=== PATIENT | male | born 1935 | race Caucasian/White ===

== ENCOUNTER 2017-02-16 12:55 | Emergency (ER) | payer OTHER ==
[~2017-02-16] VITALS: Ht 167.6 cm; Wt 85.0 kg
[2017-02-16] MEDS ORDERED: IOHEXOL 350 MG/ML 10 ML VIAL (for RAD DIAG) IVCONTRAST ONE (12:56)
[2017-02-16 13:07] VITALS: BP 132/68; PULSE 71; RESP 22; TEMP 97.9; O2SAT 100
[2017-02-16] MEDS ORDERED: SODIUM CHLORIDE 0.9% FLUSH 10 ML FLUSH IVF PRN (13:15)
--- NOTE | 2017-02-16 13:15 | PD ---
HPI Chief Complaint: Respiratory Symptoms Time Seen by Provider: 13:12 Travel History International Travel<30 days: No Contact w/Intl Traveler<30days: No Traveled to known affect area: No History of Present Illness HPI 81-year-old male presents to the emergency department. Patient [facility] for [facility] of his recurrent chest pain and findings of abnormalities of Q waves in leads 3 and aVF on his EKG. Patient had a STEMI in [place] 2 weeks ago and a stent was placed. States he felt great but then drove from [place] which took about 12 hours. States that when he returned to [place] he started developing social dyspnea and had an episode of chest pain last week resolved with nitroglycerin. 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 Patient currently denies fever, chills, chest pain, shortness of breath, cough, abnormal back pain, abdominal pain, numbness, tingling leg pain. PFSH Past Medical History Cardiovascular Problems: Yes Social History Tobacco Use: Yes Allergies-Medications (Allergen,Severity, Reaction): Coded Allergies: No Known Allergies (Unverified , 02/16/17) Reported Meds & Prescriptions Reported Meds & Active Scripts Active Reported Nitrostat SL (Nitroglycerin) 0.4 Mg Subl 0.4 Mg SL DIRECTED PRN 1 tablet under the tongue as needed for chest pain. Repeat every 5 minutes for a total of 3 DOSES or call 911 if NO relief. Isosorbide Mononitrate ER (Isosorbide Mononitrate) 30 Mg Tony 30 Mg PO DAILY Gabapentin 600 Mg Tab 600 Mg PO QID Furosemide 40 Mg Tab 40 Mg PO DAILY Clopidogrel (Clopidogrel Bisulfate) 75 Mg Tab 75 Mg PO DAILY Cetirizine (Cetirizine HCl) 10 Mg Tab 10 Mg PO DAILY Carvedilol 6.25 Mg Tab 6.25 Mg PO BID Baclofen 10 Mg Tab 10 Mg PO TID Atorvastatin (Atorvastatin Calcium) 80 Mg Tab 80 Mg PO HS Aspirin 81 Mg Chew 81 Mg CHEW DAILY Review of Systems Except as stated in HPI: all other systems reviewed are Neg Physical Exam Narrative GENERAL: Well developed well nourished SKIN: Focused skin assessment warm/dry. No erythema or edema of the upper or lower external extremities HEAD: Atraumatic. Normocephalic. EYES: Pupils equal and round. No scleral icterus. No injection or drainage. ENT: No nasal bleeding or discharge. Mucous membranes pink and moist. NECK: Trachea midline. No JVD. CARDIOVASCULAR: Regular rate and rhythm. No murmur appreciated. RESPIRATORY: No accessory muscle use. Clear to auscultation. Breath sounds equal bilaterally. GASTROINTESTINAL: Abdomen soft, non-tender, nondistended. Hepatic and splenic margins not palpable. MUSCULOSKELETAL: No obvious deformities. No clubbing. No cyanosis. No edema. Homans sign negative bilateral legs. NEUROLOGICAL: Awake and alert. No obvious cranial nerve deficits. Motor grossly within normal limits. Normal speech. PSYCHIATRIC: Appropriate mood and affect; insight and judgment normal. Data Data Last Documented VS Vital Signs Date Time Temp Pulse Resp B/P (MAP) Pulse Ox O2 Delivery O2 Flow Rate FiO2 02/16/17 18:18 02/16/17 15:54 61 18 98 Nasal Cannula 2.00 02/16/17 13:07 97.9 Orders Orders Complete Blood Count With Diff (02/16/17 13:15) Basic Metabolic Panel (Bmp) (02/16/17 13:15) B-Type Natriuretic Peptide (02/16/17 13:15) Act Partial Throm Time (Ptt) (02/16/17 13:15) Prothrombin Time / Inr (Pt) (02/16/17 13:15) Ckmb (Isoenzyme) Profile (02/16/17 13:15) Troponin I (02/16/17 13:15) Urinalysis - C+S If Indicated (02/16/17 13:15) Iv Access Insert/Monitor (02/16/17 13:15) Ecg Monitoring (02/16/17 13:15) Oximetry (02/16/17 13:15) Oxygen Administration (02/16/17 13:15) Sodium Chloride 0.9% Flush (Ns Flush) (02/16/17 13:15) D-Dimer (02/16/17 13:35) Ct Pulmonary Angiogram (02/16/17 ) CKMB (02/16/17 13:20) CKMB% (02/16/17 13:20) Iohexol 350 Inj (Omnipaque 350 Inj) (02/16/17 12:56) Ed Discharge Order (02/16/17 16:07) Urine Culture (02/16/17 15:55) Electrocardiogram (02/16/17 13:07) Labs Laboratory Tests Test 02/16/17 13:20 02/16/17 15:55 White Blood Count 7.7 TH/MM3 Red Blood Count 4.78 MIL/MM3 Hemoglobin 15.1 GM/DL Hematocrit 45.3 % Mean Corpuscular Volume 94.8 FL Mean Corpuscular Hemoglobin 31.7 PG Mean Corpuscular Hemoglobin Concent 33.4 % Red Cell Distribution Width 13.4 % Platelet Count 226 TH/MM3 Mean Platelet Volume 8.6 FL Neutrophils (%) (Auto) 62.3 % Lymphocytes (%) (Auto) 18.6 % Monocytes (%) (Auto) 10.0 % Eosinophils (%) (Auto) 8.2 % Basophils (%) (Auto) 0.9 % Neutrophils # (Auto) 4.8 TH/MM3 Lymphocytes # (Auto) 1.4 TH/MM3 Monocytes # (Auto) 0.8 TH/MM3 Eosinophils # (Auto) 0.6 TH/MM3 Basophils # (Auto) 0.1 TH/MM3 CBC Comment DIFF FINAL Differential Comment Prothrombin Time 11.6 SEC Prothromb Time International Ratio 1.0 RATIO Activated Partial Thromboplast Time 27.3 SEC D-Dimer Quantitative (PE/DVT) 0.55 MG/L FEU Blood Urea Nitrogen 25 MG/DL Creatinine 0.92 MG/DL Random Glucose 81 MG/DL Calcium Level 9.3 MG/DL Sodium Level 138 MEQ/L Potassium Level 4.4 MEQ/L Chloride Level 103 MEQ/L Carbon Dioxide Level 29.2 MEQ/L Anion Gap 6 MEQ/L Estimat Glomerular Filtration Rate 79 ML/MIN Total Creatine Kinase 155 U/L Creatine Kinase MB 1.9 NG/ML Troponin I 0.02 NG/ML B-Type Natriuretic Peptide 53 PG/ML Urine Color YELLOW Urine Turbidity CLOUDY Urine pH 8.0 Urine Specific [place] 1.019 Urine Protein NEG mg/dL Urine Glucose (UA) NEG mg/dL Urine Ketones NEG mg/dL Urine Occult Blood NEG Urine Nitrite NEG Urine Bilirubin NEG Urine Urobilinogen LESS THAN 2.0 MG/DL Urine Leukocyte Esterase NEG Urine RBC LESS THAN 1 /hpf Urine WBC 11 /hpf Urine Squamous Epithelial Cells <1 /hpf Urine Amorphous Sediment RARE Microscopic Urinalysis Comment CULTURE INDICATED MDM Medical Decision Making Medical Screen Exam Complete: Yes Emergency Medical Condition: Yes Differential Diagnosis STEMI versus unstable angina versus an STEMI versus PE Narrative Course 81-year-old male presents to the emergency department via [facility] at the recommendation of [facility] for evaluation of Q waves in leads 3 and aVF. Upon arrival patient states that he is asymptomatic no chest pain or shortness of breath, cough. No unusual back pain, belly pain, numbness or tingling. Patient has been to [facility] the last 2 weeks and apparently completed a work up for STEMI. When patient does have shortness of breath and chest pain he states that his with exertion only goes away when he rests. He had an episode of chest pain last week that was relieved with 2 nitroglycerin. He stated that there was no recent extensive travel, no history of cancer, denies previous DVT or PE, had stent placement 2 weeks ago. I spoke to his primary care physician Dr. Diamond in [place] and he is aware of patient's recent admits and STEMI. Dr. Oneill stated questionable compliance. Previous imaging stated cardiomegaly and pulmonary nodules consistent with asbestos exposure. Currently patient was referred to pulmonology for evaluation of this finding. Vital signs stable PERC 3. H/o 'clot in heart' in 1996 and recent stent placement 2 weeks ago. Labs BUN/Cr 25/0.92, Ddimer positive CT Angio demonstrates calcified pleural plaques and interstitial fibrotic change suggesting asbestosis. No pulmonary embolism identified. Patient remained asymptomatic during urgency department visit. Advised to follow up with pulmonary and edging catcher for evaluation of his symptoms. Diagnosis Primary Impression: Shortness of breath on exertion Referrals: Restaurant Attendant Primary Care Physician Outside Machinist Helper Disposition: 01 DISCHARGE HOME Condition: Stable Criselda Wooten Feb 16, 2017 13:15
[2017-02-16 13:43] VITALS: RESP 18; O2SAT 100
[2017-02-16] MEDS ORDERED: ASPI81CH CHEW (13:53)
[2017-02-16] MEDS ORDERED: NITR0.4S SL (13:53)
[2017-02-16] MEDS ORDERED: CARV6.252 PO (13:53)
[2017-02-16] MEDS ORDERED: CETI10 PO (13:53)
[2017-02-16] MEDS ORDERED: CLOP75TA PO (13:53)
[2017-02-16] MEDS ORDERED: ATOR1TAB18 PO (13:53)
[2017-02-16] MEDS ORDERED: GABA600T PO (13:53)
[2017-02-16] MEDS ORDERED: ISOS30TA3 PO (13:53)
[2017-02-16] MEDS ORDERED: FURO40TA PO (13:53)
[2017-02-16] MEDS ORDERED: BACL10TA PO (13:53)
[2017-02-16 14:11] LABS: AUTOMATED NEUTROPHIL # 4.8 TH/MM3 (1.8-7.7); BASOPHIL # 0.1 TH/MM3 (0-0.2); BASOPHIL % 0.9 % (0.0-2.0); EOSINOPHIL # 0.6 TH/MM3 (0-0.4); EOSINOPHIL % 8.2 % (0.0-4.0); HEMATOCRIT 45.3 % (39.0-51.0); HEMO FLAGS DIFF FINAL; LYMPH % 18.6 % (9.0-44.0); LYMPHOCYTE # 1.4 TH/MM3 (1.0-4.8); MEAN CELL VOLUME 94.8 FL (80.0-100.0); MEAN CORPUSCULAR HEMOGLOBIN 31.7 PG (27.0-34.0); MEAN CORPUSCULAR HGB CONC 33.4 % (32.0-36.0); NEUT % 62.3 % (16.0-70.0); PLATELET COUNT 226 TH/MM3 (150-450); RED BLOOD COUNT 4.78 MIL/MM3 (4.50-5.90); RED CELL DISTRIBUTION WIDTH 13.4 % (11.6-17.2); WHITE BLOOD COUNT 7.7 TH/MM3 (4.0-11.0)
[2017-02-16 14:23] LABS: APTT (PATIENT) 27.3 SEC (24.3-30.1); PROTHROMBIN TIME - PATIENT 11.6 SEC (9.8-11.6)
[2017-02-16 14:28] LABS: ANION GAP 6 MEQ/L (5-15); BICARBONATE 29.2 MEQ/L (21.0-32.0); BLOOD UREA NITROGEN 25 MG/DL (7-18); CHLORIDE 103 MEQ/L (98-107); GLOMERULAR FILTRATION RATE 79 ML/MIN (>89); POTASSIUM 4.4 MEQ/L (3.5-5.1); SODIUM (NA) 138 MEQ/L (136-145)
[2017-02-16 14:33] LABS: CREATINE KINASE 155 U/L (39-308)
[2017-02-16 14:45] LABS: CKMB 1.9 NG/ML (0.5-3.6)
--- NOTE | 2017-02-16 15:37 | RADRPT ---
EXAM DATE/TIME: 02/16/2017 15:10 [facility] COMPARISON: No previous studies available for comparison. INDICATIONS : Short of breath with general weakness. IV CONTRAST: 70 cc Omnipaque 350 (iohexol) IV RADIATION DOSE: 20.13 CTDIvol (mGy) MEDICAL HISTORY : Myocardial infarction. Hypertension. Cardiovascular disease SURGICAL HISTORY : Coronary artery stent. ENCOUNTER: Initial ACUITY: 1 day PAIN SCALE: 3/10 LOCATION: Bilateral chest TECHNIQUE: Volumetric scanning of the chest was performed using a pulmonary embolism protocol MIP images were re constructed. Using automated exposure control and adjustment of the mA and/or kV according to patien t size, radiation dose was kept as low as reasonably achievable to obtain optimal diagnostic quality images. DICOM format image data is available electronically for review and comparison. Follow-up recommendations for detected pulmonary nodules are based at a minimum on nodule size and pa tient risk factors according to Fleischner Society Guidelines. FINDINGS: The exam is of adequate diagnostic quality. No pulmonary embolus is identified. The heart is enlarged. There is calcification within the myocardium of the left ventricle suggesting previous infarct. There is no significant hilar or mediastinal adenopathy. There is atherosclerotic p laque in the coronary arteries. There is diffuse nodular pleural thickening. Most of these areas demonstrate some degree of calcifica tion. There is no pleural effusion. There are interstitial fibrotic changes within the pulmonary parenchyma. The examination would sugges t asbestosis. The visualized bony structures demonstrate degenerative changes but are otherwise intact. CONCLUSION: 1. Multiple partially calcified pleural plaques and interstitial fibrotic change suggesting asbestosi s. Followup examination in 6 months to document stability of the pleural plaques would be warranted. 2. No pulmonary edema is identified. 3. Cardiomegaly with calcification in the left ventricular wall suggesting previous IN. Adal Gold MD on February 16, 2017 at 15:33 Board Certified Radiologist. This report was verified electronically.
[2017-02-16 15:54] VITALS: BP 140/78; PULSE 61; RESP 18; O2SAT 20; O2SAT 98
[2017-02-16 16:24] LABS: BLOOD, URINE NEG (NEG); COMMENT (UR) CULTURE INDICATED; CULTURE IF INDICATED CULTURE INDICATED; GLUCOSE,URINE NEG (NEG); KETONE, URINE NEG (NEG); NITRITE,URINE NEG (NEG); SQUAMOUS EPITHELIAL CELL URINE <1 /hpf (0-5); URINE COLOR YELLOW (YELLW/STRAW)
--- NOTE | 2017-02-16 18:50 | EKG ---
Date Performed: 02/16/2017 Time Performed: 13:07:46 PTAGE: 81 years EKG: Sinus rhythm WITH FIRST DEGREE AV BLOCK MARKED LEFT AXIS DEVIATION POSSIBLE ANTERIOR MYOCARDIAL INFARCTION MODERA TE T-WAVE ABNORMALITY, CONSIDER LATERAL ISCHEMIA ABNORMAL ECG NO PREVIOUS TRACING DOCTOR: Ignacio Mack Interpretating Date/Time 02/16/2017 18:48:50
== END 2017-02-16 18:18 | disposition home or self-care (01) ==
LOC: NEPC 12:55
DX: R06.02 Shortness of breath (principal); R07.9 Chest pain, unspecified; R94.31 Abnormal electrocardiogram [ECG] [EKG]; R82.99 Other abnormal findings in urine; Z72.0 Tobacco use; Z86.79 Personal history of other diseases of the circulatory system
CPT/HCPCS: 71275; 80048; 81001; 82550; 82552; 83880; 84484; 85025; 85379; 85610; 85730; 87086; 93005; 99285; Q9967

== ENCOUNTER 2017-04-26 10:18 | Inpatient (IN) | payer OTHER ==
[~2017-04-26] VITALS: Ht 167.6 cm; Wt 87.4 kg
[2017-04-26] VITALS (7 sets, daily range): BP systolic 89–139; BP diastolic 55–83; PULSE 57–75; RESP 16–20; TEMP 97.1–97.9; O2SAT 78–97
[~2017-04-26 10:18] MED LIST: ASPI-516 CHEW; ATOR80TA45 PO; BACL10TA PO; CARV6.252 PO; CETI10 PO; CLOP75TA PO; FURO40TA PO; GABA600T PO; ISOS30TA3 PO; NITR0.4S SL
[2017-04-26] MEDS ORDERED: MELO7.5T27 PO (11:19)
[2017-04-26 11:33] LABS: AUTOMATED NEUTROPHIL # 4.9 TH/MM3 (1.8-7.7); BASOPHIL # 0.1 TH/MM3 (0-0.2); BASOPHIL % 0.7 % (0.0-2.0); EOSINOPHIL # 0.7 TH/MM3 (0-0.4); EOSINOPHIL % 7.8 % (0.0-4.0); HEMATOCRIT 43.6 % (39.0-51.0); HEMO FLAGS DIFF FINAL; LYMPH % 20.2 % (9.0-44.0); LYMPHOCYTE # 1.8 TH/MM3 (1.0-4.8); MEAN CELL VOLUME 96.4 FL (80.0-100.0); MEAN CORPUSCULAR HEMOGLOBIN 32.3 PG (27.0-34.0); MEAN CORPUSCULAR HGB CONC 33.5 % (32.0-36.0); MONO % 15.7 % (0.0-8.0); NEUT % 55.6 % (16.0-70.0); PLATELET COUNT 197 TH/MM3 (150-450); RED BLOOD COUNT 4.53 MIL/MM3 (4.50-5.90); RED CELL DISTRIBUTION WIDTH 14.9 % (11.6-17.2); WHITE BLOOD COUNT 8.7 TH/MM3 (4.0-11.0)
--- NOTE | 2017-04-26 11:57 | RADRPT ---
EXAM DATE/TIME: 04/26/2017 11:12 [facility] COMPARISON: CT PULMONARY ANGIOGRAM, February 16, 2017, 15:10. INDICATIONS : [facility] by [facility] MEDICAL HISTORY : Myocardial infarction. Hypertension. Cardiovascular disease SURGICAL HISTORY : Coronary artery stent. ENCOUNTER: Initial ACUITY: 1 day PAIN SCORE: 0/10 LOCATION: Bilateral chest FINDINGS: 2 portable frontal views of the chest show partially calcified pleural plaques bilaterally. These are better seen on the recent CT scan. The lungs are clear without infiltrate or effusion. Eventration o f the right hemidiaphragm noted. Heart is normal in size. 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 Anchoring devices overlie the left lateral head. CONCLUSION: No acute cardiopulmonary disease. Lio Kern Jr., MD on April 26, 2017 at 11:49 Board Certified Radiologist. This report was verified electronically.
[2017-04-26 11:59] LABS: ALT (GPT) 31 U/L (12-78); ANION GAP 4 MEQ/L (5-15); AST (GOT) 26 U/L (15-37); BICARBONATE 28.7 MEQ/L (21.0-32.0); BLOOD UREA NITROGEN 27 MG/DL (7-18); CHLORIDE 105 MEQ/L (98-107); GLOMERULAR FILTRATION RATE 49 ML/MIN (>89); POTASSIUM 4.8 MEQ/L (3.5-5.1); SODIUM (NA) 138 MEQ/L (136-145)
[2017-04-26] MEDS ORDERED: SODIUM CHLORID 0.9% 500 ML INJ 500 ML IV ONE (12:00)
--- NOTE | 2017-04-26 12:02 | PD ---
HPI Chief Complaint: Cardiac Complaint Time Seen by Provider: 10:55 Travel History International Travel<30 days: No Contact w/Intl Traveler<30days: No Traveled to known affect area: No History of Present Illness HPI Surmises a well 81-year-old man who presents to the emergency Department sent over from the [place] for hypotension and dyspnea on exertion. Patient reports that he's been dyspneic on exertion ever since he had an ND back in January of this year. He is otherwise been doing well and went for routine appointment with the [place] pain management. Wall there he had a hypotensive episode and was down in the 80 systolic. Says he felt lightheaded. He had been feeling well before this appointment. He does state that he put on about 5 or 10 pounds. He previously been told that if he became more than 2 pounds a double up on his Lasix so he doubled up on his Lasix for the past several days. Patient states he feels better now and would like to go home. No other complaints. History Past Medical History Narrative Medical CAD Chronic pain History of PE Hypothyroidism Hyperlipidemia GERD Hypertension Tetanus Vaccination: > 5 Years Influenza Vaccination: No Social History Alcohol Use: Yes (OCCAS) Tobacco Use: No Allergies-Medications (Allergen,Severity, Reaction): Coded Allergies: No Known Allergies (Unverified , 02/16/17) Reported Meds & Prescriptions Reported Meds & Active Scripts Active Reported Meloxicam 7.5 Mg Tab 7.5 Mg PO DAILY Nitrostat SL (Nitroglycerin) 0.4 Mg Subl 0.4 Mg SL DIRECTED PRN 1 tablet under the tongue as needed for chest pain. Repeat every 5 minutes for a total of 3 DOSES or call 911 if NO relief. Isosorbide Mononitrate ER (Isosorbide Mononitrate) 30 Mg Tony 30 Mg PO DAILY Gabapentin 600 Mg Tab 400 Mg PO QID Furosemide 40 Mg Tab 20 Mg PO DAILY Clopidogrel (Clopidogrel Bisulfate) 75 Mg Tab 75 Mg PO DAILY Cetirizine (Cetirizine HCl) 10 Mg Tab 10 Mg PO DAILY Carvedilol 6.25 Mg Tab 6.25 Mg PO BID Baclofen 10 Mg Tab 10 Mg PO TID Atorvastatin (Atorvastatin Calcium) 80 Mg Tab 80 Mg PO HS Aspirin 81 Mg Chew 81 Mg CHEW DAILY Review of Systems Except as stated in HPI: all other systems reviewed are Neg Physical Exam Narrative GENERAL: Well-appearing 81-year-old man, no acute distress. SKIN: Focused skin assessment warm/dry. HEAD: Atraumatic. Normocephalic. EYES: Pupils equal and round. No scleral icterus. No injection or drainage. ENT: No nasal bleeding or discharge. Mucous membranes pink and moist. NECK: Trachea midline. No JVD. CARDIOVASCULAR: Regular rate and rhythm. No murmur appreciated. RESPIRATORY: No accessory muscle use. Clear to auscultation. Breath sounds equal bilaterally. GASTROINTESTINAL: Abdomen soft, non-tender, nondistended. Hepatic and splenic margins not palpable. MUSCULOSKELETAL: No obvious deformities. No clubbing. No cyanosis. No edema. NEUROLOGICAL: Awake and alert. No obvious cranial nerve deficits. Motor grossly within normal limits. Normal speech. PSYCHIATRIC: Appropriate mood and affect; insight and judgment normal. Data Data Last Documented VS Vital Signs Date Time Temp Pulse Resp B/P (MAP) Pulse Ox O2 Delivery O2 Flow Rate FiO2 04/26/17 14:36 97.8 62 18 132/78 (96) 96 Room Air Orders Orders Complete Blood Count With Diff (04/26/17 11:04) Comprehensive Metabolic Panel (04/26/17 11:04) B-Type Natriuretic Peptide (04/26/17 11:04) Troponin I (04/26/17 11:04) Iv Access Insert/Monitor (04/26/17 11:04) Chest, Single Ap (04/26/17 ) Electrocardiogram (04/26/17 ) Sodium Chlorid 0.9% 500 Ml Inj (Ns 500 M (04/26/17 12:00) D-Dimer (04/26/17 14:14) Admit To Inpatient (04/26/17 ) Vital Signs (Adult) Q4H (04/26/17 14:39) Activity Oob With Assistance (04/26/17 14:39) Loader Machine / Telemetry .CONTINUOUS (04/26/17 14:39) Intake + Output CINDY.QSHIFT (04/26/17 14:39) Diet Heart Healthy (04/26/17 Dinner) Sodium Chloride 0.9% Flush (Ns Flush) (04/26/17 14:45) Sodium Chloride 0.9% Flush (Ns Flush) (04/26/17 21:00) Basic Metabolic Panel (Bmp) (04/27/17 06:00) Complete Blood Count With Diff (04/27/17 06:00) Creatine Kinase (Cpk) (04/26/17 17:00) Creatine Kinase (Cpk) (04/26/17 23:00) Troponin I (04/26/17 17:00) Troponin I (04/26/17 23:00) Electrocardiogram (04/26/17 17:00) Electrocardiogram (04/26/17 23:00) Pt Request For Service (04/26/17 14:39) Case Management Consult (04/26/17 14:39) Naloxone Inj (Narcan Inj) (04/26/17 14:45) Inpatient Certification (04/26/17 ) Heparin Inj (Heparin Inj) (04/26/17 14:45) Heparin Inj (Heparin Inj) (04/26/17 20:45) Heparin Inj (Heparin Inj) (04/26/17 20:45) Heparin-D5w 25,000 U/250 Ml (Heparin-D5w (04/26/17 14:45) Cbc No Diff, Includes Plts (04/29/17 06:00) Act Partial Throm Time (Ptt) (04/26/17 21:41) Occult Blood (Hemoccult) Stool (04/26/17 14:41) Prothrombin Time / Inr (Pt) (04/26/17 14:41) Act Partial Throm Time (Ptt) (04/26/17 14:41) Orthostatic Blood Pressure Q4H (04/26/17 14:42) Admit Order (Ed Use Only) (04/26/17 ) Labs Laboratory Tests Test 04/26/17 11:05 04/26/17 14:30 White Blood Count 8.7 TH/MM3 Red Blood Count 4.53 MIL/MM3 Hemoglobin 14.6 GM/DL Hematocrit 43.6 % Mean Corpuscular Volume 96.4 FL Mean Corpuscular Hemoglobin 32.3 PG Mean Corpuscular Hemoglobin Concent 33.5 % Red Cell Distribution Width 14.9 % Platelet Count 197 TH/MM3 Mean Platelet Volume 8.1 FL Neutrophils (%) (Auto) 55.6 % Lymphocytes (%) (Auto) 20.2 % Monocytes (%) (Auto) 15.7 % Eosinophils (%) (Auto) 7.8 % Basophils (%) (Auto) 0.7 % Neutrophils # (Auto) 4.9 TH/MM3 Lymphocytes # (Auto) 1.8 TH/MM3 Monocytes # (Auto) 1.4 TH/MM3 Eosinophils # (Auto) 0.7 TH/MM3 Basophils # (Auto) 0.1 TH/MM3 CBC Comment DIFF FINAL Differential Comment Blood Urea Nitrogen 27 MG/DL Creatinine 1.40 MG/DL Random Glucose 82 MG/DL Total Protein 6.7 GM/DL Albumin 3.5 GM/DL Calcium Level 8.0 MG/DL Alkaline Phosphatase 91 U/L Aspartate Amino Transf (AST/SGOT) 26 U/L Alanine Aminotransferase (ALT/SGPT) 31 U/L Total Bilirubin 0.7 MG/DL Sodium Level 138 MEQ/L Potassium Level 4.8 MEQ/L Chloride Level 105 MEQ/L Carbon Dioxide Level 28.7 MEQ/L Anion Gap 4 MEQ/L Estimat Glomerular Filtration Rate 49 ML/MIN Troponin I 0.22 NG/ML B-Type Natriuretic Peptide 178 PG/ML [facility] Medical Decision Making Medical Screen Exam Complete: Yes Emergency Medical Condition: Yes Interpretation(s) My review of EKG: Sinus bradycardia first degree AV block, nonspecific lateral T wave inversions high lateral leads. Small inferior Q waves. No definite evidence of acute ischemia. Lateral T wave inversions are unchanged from previous EKG from February 16, 2017. LABS: CBC is unremarkable. CMP CMP is remarkable for mildly elevated BUN and creatinine. Troponin 0.22 BNP 178 Differential Diagnosis Hypotension episode, adverse drug effect, dehydration, PE, other Narrative Course Medical decision making 81-year-old man presents emergency department complaining of nothing at this point. He states that he had some lightheadedness associated with hypertension ball at the [place] for routine appointment. He is been doubling up on his Lasix. I think is a likely culprit. He's had a PE in the past. Is a little bit unclear about his medications. He is on Plavix. There is no other evidence of PE. We'll check labs, x-ray, EKG. Patient like to be discharged home. He is agreeable to stay for some initial testing. FINAL: Patient with elevated troponin, unclear etiology. History of ND. No history of PE. This was actually an ND following a back operation. We'll add d -dimer given the hypotension, dyspnea on exertion, and elevated troponin of unclear etiology. Spoke with Dr. Kim, will admit patient for further evaluation. Diagnosis Primary Impression: Shortness of breath Additional Impression: Elevated troponin Admitting Information Admitting Physician Requests: Admit Saleem Teresa MD Apr 26, 2017 12:02
[2017-04-26 12:03] LABS: ALKALINE PHOSPHATASE 91 U/L (45-117); TOTAL BILIRUBIN ADULT 0.7 MG/DL (0.2-1.0)
[2017-04-26] MEDS ORDERED: SODIUM CHLORIDE 0.9% FLUSH 10 ML FLUSH IV FLUSH PRN (14:45)
[2017-04-26] MEDS ORDERED: NALOXONE HCL 0.4 MG/ML AMP IV PUSH PRN (14:45)
[2017-04-26 15:51] LABS: APTT (PATIENT) 25.8 SEC (24.3-30.1); INTERNATIONAL NORMALIZED RATIO 1.1 RATIO; PROTHROMBIN TIME - PATIENT 11.1 SEC (9.8-11.6)
[2017-04-26] MEDS ORDERED: HEPARIN-D5W 25,000 U/250 ML 250 ML IV PRN (17:00)
[2017-04-26] MEDS ORDERED: HEPARIN SODIUM - IV 10,000 UNITS/10 ML VIAL IV PUSH ONE (17:00)
--- NOTE | 2017-04-26 18:49 | HHI.HP ---
HPI Service [facility] Primary Care Physician [facility] Admission Diagnosis shortness of breath, elevated troponin Diagnoses: Travel History International Travel<30 Days: No Contact w/Intl Traveler <30 Da: No Traveled to Known Affected Are: No History of Present Illness went to [facility] clinic for pain meds but was not feelign good so told nurse who took him to pcp there and checked him immediately BP was found to be low and pcp told him to come to ER but they let him drive here to come to ER have been sob for past 6 months but worsening since monday and Monday worse with lying down pt increased his lasix dose twice - because he gained water weight 10lbs over 2 weeks- lasix was thus increased 2 weeks ago did not measure BP at home because did not have machine - lost it in [place] have light headedness have some chest pains on and off- but did not think it was from his heart- stated NTG did not help pain is across chest did not radiate thought it was indegestion no other symptoms Past Family Social History Past Medical History htn- meds only stared about 1 yr ago cad- s/p NV in jan 2017 in [facility] CHF - echo showed EF was 40-45% Past Surgical History coronary angiogram and stenting lower back surgery neck surgery hernia operation 2 left shoulder 1 right shoulder carpal tunnel cataract sx Allergies: Coded Allergies: No Known Allergies (Unverified Allergy, Unknown, 04/26/17) Family History none that he knows of Social History used to smoke, from 14 yo to 30yo denies etoh no drugs - but did have prescribed morphine and vicodin previously lives with , still driving Physical Exam Vital Signs Vital Signs Date Time Temp Pulse Resp B/P (MAP) Pulse Ox O2 Delivery O2 Flow Rate FiO2 04/26/17 16:40 97.8 66 18 124/83 (97) 97 04/26/17 14:36 97.8 62 18 132/78 (96) 96 Room Air 04/26/17 12:50 97.9 57 17 116/64 (81) 97 Room Air 04/26/17 11:57 97.8 58 18 89/55 (66) 96 Room Air 04/26/17 10:30 56 04/26/17 10:19 97.7 59 16 110/62 (78) 96 Physical Exam GENERAL: This is a well-nourished, well-developed patient, in no apparent distress. SKIN: No rashes, ecchymoses or lesions. Cool and dry. HEAD: Atraumatic. Normocephalic. No temporal or scalp tenderness. EYES: Pupils equal round and reactive. Extraocular motions intact. No scleral icterus. No injection or drainage. ENT: Nose without bleeding, purulent drainage or septal hematoma. Throat without erythema, tonsillar hypertrophy or exudate. Uvula midline. Airway patent. NECK: Trachea midline. No JVD or lymphadenopathy. Supple, nontender, no meningeal signs. CARDIOVASCULAR: Regular rate and rhythm without murmurs, gallops, or rubs. RESPIRATORY: Clear to auscultation. Breath sounds equal bilaterally. No wheezes , rales, or rhonchi. GASTROINTESTINAL: Abdomen soft, non-tender, nondistended. No hepato-splenomegaly , or palpable masses. No guarding. MUSCULOSKELETAL: Extremities without clubbing, cyanosis, or edema. No joint tenderness, effusion, or edema noted. No calf tenderness. Negative Homans sign bilaterally. NEUROLOGICAL: Awake and alert. Cranial nerves II through XII intact. Motor and sensory grossly within normal limits. Five out of 5 muscle strength in all muscle groups. Normal speech. Laboratory Laboratory Tests Test 04/26/17 11:05 04/26/17 14:30 White Blood Count 8.7 Red Blood Count 4.53 Hemoglobin 14.6 Hematocrit 43.6 Mean Corpuscular Volume 96.4 Mean Corpuscular Hemoglobin 32.3 Mean Corpuscular Hemoglobin Concent 33.5 Red Cell Distribution Width 14.9 Platelet Count 197 Mean Platelet Volume 8.1 Neutrophils (%) (Auto) 55.6 Lymphocytes (%) (Auto) 20.2 Monocytes (%) (Auto) 15.7 Eosinophils (%) (Auto) 7.8 Basophils (%) (Auto) 0.7 Neutrophils # (Auto) 4.9 Lymphocytes # (Auto) 1.8 Monocytes # (Auto) 1.4 Eosinophils # (Auto) 0.7 Basophils # (Auto) 0.1 CBC Comment DIFF FINAL Differential Comment Blood Urea Nitrogen 27 Creatinine 1.40 Random Glucose 82 Total Protein 6.7 Albumin 3.5 Calcium Level 8.0 Alkaline Phosphatase 91 Aspartate Amino Transf (AST/SGOT) 26 Alanine Aminotransferase (ALT/SGPT) 31 Total Bilirubin 0.7 Sodium Level 138 Potassium Level 4.8 Chloride Level 105 Carbon Dioxide Level 28.7 Anion Gap 4 Estimat Glomerular Filtration Rate 49 Troponin I 0.22 B-Type Natriuretic Peptide 178 Prothrombin Time 11.1 Prothromb Time International Ratio 1.1 Activated Partial Thromboplast Time 25.8 D-Dimer Quantitative (PE/DVT) 0.39 Result Diagram: 04/26/17 11004/26/17 110 Caprini VTE Risk Assessment Caprini Risk Assessment Model Point Value = 1 Point Value = 2 Point Value = 3 Point Value = 5 Age 41-60 Minor surgery BMI > 25 kg/m2 Swollen legs Varicose veins or History of unexplained or recurrent spontaneous Oral contraceptives or hormone replacement Sepsis (< 1 month) Serious lung disease, including pneumonia (< 1 month) Abnormal pulmonary function Acute myocardial infarction Congestive heart failure (< 1 month) History of inflammatory bowel disease Medical patient at bed rest Age 61-74 Arthroscopic surgery Major open surgery (> 45 min) Laparoscopic surgery (> 45 min) Malignancy Confined to bed (> 72 hours) Immobilizing plaster cast Central venous access Age >= 75 History of VTE Family history of VTE Factor V Leiden Prothrombin [id number] Lupus anticoagulant Anticardiolipin antibodies Elevated serum homocysteine Heparin-induced thrombocytopenia Other congenital or acquired thrombophilia Stroke (< 1 month) Elective arthroplasty Hip, pelvis, or leg fracture Acute spinal cord injury (< 1 month) Prophylaxis Regimen Total Risk Factor Score Risk Level Prophylaxis Regimen 0-1 Low Early ambulation 2 Moderate Order ONE of the following: *Sequential Compression Device (SCD) *Heparin 5000 units SQ BID 3-4 Higher Order ONE of the following medications: *Heparin 5000 units SQ TID *Enoxaparin/Lovenox 40 mg SQ daily (WT < 150 kg, CrCl > 30 mL/min) *Enoxaparin/Lovenox 30 mg SQ daily (WT < 150 kg, CrCl > 10-29 mL/min) *Enoxaparin/Lovenox 30 mg SQ BID (WT < 150 kg, CrCl > 30 mL/min) AND/OR *Sequential Compression Device (SCD) 5 or more Highest Order ONE of the following medications: *Heparin 5000 units SQ TID (Preferred with Epidurals) *Enoxaparin/Lovenox 40 mg SQ daily (WT < 150 kg, CrCl > 30 mL/min) *Enoxaparin/Lovenox 30 mg SQ daily (WT < 150 kg, CrCl > 10-29 mL/min) *Enoxaparin/Lovenox 30 mg SQ BID (WT < 150 kg, CrCl > 30 mL/min) AND *Sequential Compression Device (SCD) Assessment and Plan Assessment and Plan NSTEMI orthostatic hypotension meds induced from lasix chf exacerbation - systolic negative d dimer serial enzymes and ekg heparin drip cardio consult echo in am lasix to continue if BP permits by am Physician Certification Order for Inpatient Services The services are ordered in accordance with Medicare regulations or non- Medicare payer requirements, as applicable. In the case of services not specified as inpatient-only, they are appropriately provided as inpatient services in accordance with the 2-midnight benchmark. days is the estimated time the patient will need to remain in the hospital, assuming treatment plan goals are met and no additional complications. Ceferino Wallis MD Apr 26, 2017 18:49
[2017-04-26] MEDS ORDERED: HEPARIN SODIUM - IV 10,000 UNITS/10 ML VIAL IV PUSH PRN ×2 (20:45)
[2017-04-26] MEDS: SODIUM CHLORIDE 0.9% FLUSH 10 ML FLUSH IV FLUSH SCH (21:20)
[2017-04-26] MEDS: GABAPENTIN 400 MG CAP PO SCH (21:20)
[2017-04-26] MEDS: ATORVASTATIN 80 MG TAB PO SCH (21:20)
[2017-04-26 22:11] LABS: APTT (PATIENT) 57.9 SEC (24.3-30.1)
[2017-04-27] VITALS (11 sets, daily range): BP systolic 113–136; BP diastolic 59–71; PULSE 53–74; RESP 18–20; TEMP 97.4–98.2; O2SAT 94–98
[2017-04-27 06:26] LABS: AUTOMATED NEUTROPHIL # 4.7 TH/MM3 (1.8-7.7); BASOPHIL # 0.1 TH/MM3 (0-0.2); BASOPHIL % 0.6 % (0.0-2.0); EOSINOPHIL # 0.6 TH/MM3 (0-0.4); EOSINOPHIL % 7.7 % (0.0-4.0); HEMATOCRIT 43.3 % (39.0-51.0); HEMO FLAGS DIFF FINAL; LYMPH % 21.7 % (9.0-44.0); LYMPHOCYTE # 1.8 TH/MM3 (1.0-4.8); MEAN CELL VOLUME 95.8 FL (80.0-100.0); MEAN CORPUSCULAR HEMOGLOBIN 32.5 PG (27.0-34.0); MONO % 13.6 % (0.0-8.0); NEUT % 56.4 % (16.0-70.0); PLATELET COUNT 174 TH/MM3 (150-450); RED BLOOD COUNT 4.52 MIL/MM3 (4.50-5.90); RED CELL DISTRIBUTION WIDTH 14.8 % (11.6-17.2); WHITE BLOOD COUNT 8.3 TH/MM3 (4.0-11.0)
[2017-04-27 06:52] LABS: BICARBONATE 28.4 MEQ/L (21.0-32.0); POTASSIUM 4.4 MEQ/L (3.5-5.1)
[2017-04-27 07:03] LABS: APTT (PATIENT) GREATER THAN 277.5 SEC (24.3-30.1)
[2017-04-27] MEDS ORDERED: NITROGLYCERIN 0.4 MG SL 25 TABS/BTL SL PRN (09:45)
[2017-04-27] MEDS ORDERED: INFLUENZA VIRUS VACCINE (QUADRIVALENT) 0.5 ML SYR IM ONE (10:00)
[2017-04-27] MEDS ORDERED: PNEUMOCOCCAL POLYVALENT INJ 25 MCG/0.5 ML SYR IM ONE (10:00)
[2017-04-27 11:05] LABS: LDL CHOLESTEROL 48 MG/DL (0-99)
[2017-04-27] MEDS: BACLOFEN 10 MG TAB PO SCH ×3 (11:18→17:32)
[2017-04-27] MEDS: CLOPIDOGREL 75 MG TAB PO SCH (11:19)
[2017-04-27] MEDS: ASPIRIN 81 MG CHEW TAB CHEW SCH (11:19)
[2017-04-27] MEDS: CETIRIZINE HCL 10 MG TAB PO SCH (11:19)
[2017-04-27] MEDS: SODIUM CHLORIDE 0.9% FLUSH 10 ML FLUSH IV FLUSH SCH ×2 (11:19→21:11)
[2017-04-27] MEDS: GABAPENTIN 400 MG CAP PO SCH ×4 (11:19→21:11)
[2017-04-27] MEDS: FUROSEMIDE 20 MG TAB PO SCH (11:19)
--- NOTE | 2017-04-27 13:52 | EKG ---
Date Performed: 04/26/2017 Time Performed: 22:33:37 PTAGE: 81 years EKG: SINUS BRADYCARDIA WITH FIRST DEGREE AV BLOCK WITH OCCASIONAL VENTRICULAR PREMATURE COMPLEXE S INFERIOR MYOCARDIAL INFARCTION , PROBABLY OLD ABNORMAL ECG Poor R wave progression still present, c onsider old anterior LA Compared to prior tracing no significant change PREVIOUS TRACING : 04/26/2017 10.44 DOCTOR: Hunter Wilson Interpretating Date/Time 04/27/2017 13:50:41
[2017-04-27 14:08] LABS: HEMOGLOBIN A1a 1.5 %; HEMOGLOBIN A1b 1.7 %; HEMOGLOBIN Ao 84.6 %; HEMOGLOBIN LA1C 2.2 %
--- NOTE | 2017-04-27 15:23 | EKG ---
Date Performed: 04/26/2017 Time Performed: 10:44:21 PTAGE: 81 years EKG: SINUS BRADYCARDIA WITH FIRST DEGREE AV BLOCK POSSIBLE ANTERIOR MYOCARDIAL INFARCTION INFERI OR MYOCARDIAL INFARCTION ABNORMAL ECG INTERPRETATION BASED ON A DEFAULT AGE OF 40 YEARS PREVIOUS TRACING : 02/16/2017 13.07 Compared to prior tracing no significant change DOCTOR: Hunter Wilson Interpretating Date/Time 04/27/2017 15:21:44
--- NOTE | 2017-04-27 15:37 | HHI.PR ---
Subjective Remarks Follow-up heart failure and NH. He has no complaints today improved weakness, chest pain and shortness of breath. Reports he underwent cardiac catheterization, stenting and angioplasty in January 2017 with his cellular phone repairer in [place]. Discussed with RN Objective Vitals Vital Signs Date Time Temp Pulse Resp B/P (MAP) Pulse Ox O2 Delivery O2 Flow Rate FiO2 04/27/17 12:00 97.6 66 20 115/61 (79) 94 04/27/17 12:00 67 133/62 (85) 04/27/17 12:00 72 113/59 (77) 04/27/17 08:00 97.6 64 20 133/65 (87) 94 04/27/17 04:00 97.4 67 18 128/66 (86) 98 04/27/17 04:00 73 04/27/17 00:00 53 04/27/17 00:00 97.8 59 18 119/61 (80) 95 04/26/17 20:00 97.1 75 18 122/55 (77) 94 108/60 (76) 111/58 (75) 04/26/17 20:00 75 04/26/17 20:00 Room Air 04/26/17 17:00 97.3 58 20 139/81 (100) 94 04/26/17 16:40 97.8 66 18 124/83 (97) 97 I/O 04/26/17 04/26/17 04/26/17 04/27/17 04/27/17 04/27/17 07:00 15:00 23:00 07:00 15:00 23:00 Intake Total 500 ml 480 ml Balance 500 ml 480 ml Intake Oral 480 ml IV Total 500 ml # Voids 2 # Bowel Movements 1 Result Diagram: 04/27/17 0559 04/27/17 0559 Imaging Last Impressions Chest X-Ray 04/26/17 0000 Signed Impressions: Service Date/Time: Wednesday, April 26, 2017 11:12 - CONCLUSION: No acute cardiopulmonary disease. Lio Kern Jr., MD Objective Remarks GENERAL: This is a well-nourished, well-developed patient, in no apparent distress. SKIN: No rashes, ecchymoses or lesions. Cool and dry. CARDIOVASCULAR: Regular rate and rhythm without murmurs, gallops, or rubs. RESPIRATORY: Clear to auscultation. Breath sounds equal bilaterally. No wheezes , rales, or rhonchi. GASTROINTESTINAL: Abdomen soft, non-tender, nondistended. No guarding. MUSCULOSKELETAL: Extremities without clubbing, cyanosis, or edema. No joint tenderness, effusion, or edema noted. No calf tenderness. Negative Homans sign bilaterally. NEUROLOGICAL: Awake and alert. Cranial nerves II through XII intact. Motor and sensory grossly within normal limits. Five out of 5 muscle strength in all muscle groups. Normal speech. A/P Problem List: (1) Elevated troponin ICD Code: R74.8 - Abnormal levels of other serum enzymes Status: Acute Assessment and Plan NSTEMI with history of coronary artery disease status post stent and angioplasty. Currently without chest pain. Continue aspirin, Plavix, Coreg and Lipitor. Obtain cardiac catheter results from his cellular phone repairer as well as echocardiogram. Risk factor modifications. A1c 5.7 LDL 48. Consult cardiology orthostatic hypotension meds induced from lasix . Improved chf exacerbation - systolic. Improved CHF education, I/O and monitor weight. Continue Lasix. Fluid restriction DVT prophylaxis with heparin Discharge Planning Not ready for discharge patient on heparin drip Ciro Baltazar MD Apr 27, 2017 15:37
[2017-04-27 17:02] LABS: APTT (PATIENT) 27.5 SEC (24.3-30.1)
--- NOTE | 2017-04-27 20:16 | MB ---
cc: DIO WALLIS MD DATE OF CONSULTATION 04/27/17 REASON FOR CONSULTATION CHF. HISTORY OF PRESENT ILLNESS The patient is a pleasant 81-year-old gentleman who apparently had an SD back in January for which he was treated with angioplasty and stenting. Those records are not currently available [place]. Since then, the patient says he has not felt very well, intermittently very fatigued, short of breath and at times feeling like he needed oxygen. He presented to the [facility] with these symptoms and they directed him directly here. Currently, he says he is breathing better, not currently short of breath. He has not had any chest pain, no residual shortness of breath, lightheadedness, dizziness or syncope. PAST MEDICAL HISTORY 1. Coronary artery disease with recent stent location currently unknown. 2. CHF. MEDICATIONS Current medications 1. Coreg 6.25 mg b.i.d. 2. Aspirin 81 mg daily. 3. Plavix 75 mg daily 4. Lasix 20 mg p.o. daily. 5. Atorvastatin 80 mg q.h.s. 6. Neurontin 400 mg q.i.d. ALLERGIES NO KNOWN DRUG ALLERGIES. PHYSICAL EXAMINATION GENERAL: Afebrile, pulse 66, respiratory rate 20, BP 115/61, satting 94 room air. GENERAL: Pleasant elderly gentleman in no distress. NECK: No JVD. LUNGS: Clear to auscultation bilaterally. CARDIOVASCULAR: Regular rate and rhythm. No significant murmurs appreciated. ABDOMEN: Benign. EXTREMITIES: No edema. LABORATORY DATA ____ Calcium 4.4, chloride 104, bicarb 28.4, BUN 21, creatinine 1.0, glucose 137, troponin 0.22, 0.20, 0.15. BNP is 178. White count 8.3, hematocrit 43.3, platelets 174. IMAGING STUDIES Chest x-ray shows no acute cardiopulmonary disease. CARDIOLOGY STUDIES EKG shows sinus rhythm with possible old inferior infarction, no acute ST or T-wave changes. IMPRESSION CHF. The patient likely has systolic congestive heart failure from his inferior SD back in January. I will have him undergo a nuclear stress test and echocardiogram to assess for any further ischemia given his elevated troponin as well as assess his LV function. He seems fairly compensated at the moment and has good blood pressures on oral medications and is off oxygen. Further recommendations will be based on his testing, but if his stress test is non-ischemic and his echocardiogram does not show any major LV dysfunction, he could be discharged home tonight or tomorrow. Thank you again for the opportunity to participate in this patient's care. MD DEXTER Anaya/ /2:16 PM /7:49 PM
[2017-04-27] MEDS: ATORVASTATIN 80 MG TAB PO SCH (21:11)
[2017-04-27] MEDS: CARVEDILOL 6.25 MG TAB PO SCH (21:11)
[2017-04-27 21:57] LABS: APTT (PATIENT) 31.7 SEC (24.3-30.1)
[2017-04-27] MEDS ORDERED: HEPARIN-D5W 25,000 U/250 ML 250 ML IV PRN (22:15)
[2017-04-28 00:23] VITALS: BP_SYST 121; BP_SYST 127; BP_SYST 132; BP_DIAS 61; BP_DIAS 69; BP_DIAS 70; PULSE 63; RESP 18; TEMP 97.7; O2SAT 95
[2017-04-28 03:48] VITALS: PULSE 54
[2017-04-28 04:00] VITALS: BP 106/55; PULSE 62; RESP 20; TEMP 97.5; O2SAT 92
[2017-04-28 05:10] LABS: APTT (PATIENT) 46.2 SEC (24.3-30.1)
[2017-04-28 08:00] VITALS: BP_SYST 114; BP_SYST 122; BP_SYST 128; BP_DIAS 63; BP_DIAS 65; BP_DIAS 71; PULSE 60; PULSE 61; PULSE 67; RESP 20; TEMP 97.3; O2SAT 95
--- NOTE | 2017-04-28 08:25 | PD.CARD.PN ---
Subjective Subjective Remarks Pt w/o symptoms, awaiting testing today. Objective Medications Current Medications Medications (Trade) Dose Ordered Sig/[place] Route Start Time Stop Time Status Last Admin (NS Flush) 2 ml UNSCH PRN IV FLUSH 04/26/17 14:45 (NS Flush) 2 ml BID IV FLUSH 04/26/17 21:00 04/27/17 21:11 (Narcan Inj) 0.4 mg UNSCH PRN IV PUSH 04/26/17 14:45 (Heparin Inj) 5,000 units UNSCH PRN IV PUSH 04/26/17 20:45 (Heparin Inj) 2,500 units UNSCH PRN IV PUSH 04/26/17 20:45 04/27/17 22:15 (Aspirin Chew) 81 mg DAILY CHEW 04/27/17 09:00 04/27/17 11:19 (Lipitor) 80 mg HS PO 04/26/17 21:00 04/27/17 21:11 (Lioresal) 10 mg TID PO 04/27/17 09:00 04/27/17 17:32 (ZyrTEC) 10 mg DAILY PO 04/27/17 09:00 04/27/17 11:19 (Plavix) 75 mg DAILY PO 04/27/17 09:00 04/27/17 11:19 (Lasix) 20 mg DAILY PO 04/27/17 09:00 04/27/17 11:19 (Neurontin) 400 mg QID PO 04/26/17 21:00 04/27/17 21:11 (Coreg) 6.25 mg BID PO 04/27/17 21:00 04/27/17 21:11 (Nitrostat Sl) 0.4 mg 5 TIMES A DAY PRN SL 04/27/17 09:45 Heparin Sodium/ Dextrose 250 ml @ 8 mls/hr TITRATE PRN IV 04/27/17 22:15 04/27/17 22:40 Vital Signs / I&O Vital Signs Date Time Temp Pulse Resp B/P (MAP) Pulse Ox O2 Delivery O2 Flow Rate FiO2 04/28/17 04:00 97.5 62 20 106/55 (72) 92 04/28/17 03:48 54 04/28/17 00:23 97.7 63 18 121/69 (86) 95 127/61 (83) 132/70 (90) 04/27/17 23:48 57 04/27/17 21:00 Room Air 04/27/17 20:00 98.2 63 20 130/63 (85) 95 134/66 (88) 136/69 (91) 04/27/17 19:49 61 04/27/17 16:04 72 04/27/17 16:00 97.6 62 20 130/71 (90) 95 04/27/17 12:03 74 04/27/17 12:00 97.6 66 20 115/61 (79) 94 04/27/17 12:00 67 133/62 (85) 04/27/17 12:00 72 113/59 (77) 04/27/17 08:45 Room Air I/O 04/27/17 04/27/17 04/27/17 04/28/17 04/28/17 04/28/17 07:00 15:00 23:00 07:00 15:00 23:00 Intake Total 480 ml 850 ml 240 ml Balance 480 ml 850 ml 240 ml Intake Oral 480 ml 600 ml 240 ml IV Total 250 ml # Voids 2 3 3 # Bowel Movements 1 1 0 Physical Exam GENERAL: This is a well-nourished, well-developed patient, in no apparent distress. CARDIOVASCULAR: Regular rate and rhythm without murmurs, gallops, or rubs. RESPIRATORY: Clear to auscultation. Breath sounds equal bilaterally. No wheezes , rales, or rhonchi. GASTROINTESTINAL: Abdomen soft, non-tender, nondistended. Normal active bowel sounds MUSCULOSKELETAL: Extremities without clubbing, cyanosis, or edema. NEURO: Alert & Oriented x4 to person, place, time, situation. Moves all ext x4 Laboratory Laboratory Tests Test 04/27/17 09:18 04/27/17 15:14 04/27/17 21:06 04/28/17 04:48 Activated Partial Thromboplast Time 28.0 SEC 27.5 SEC 31.7 SEC 46.2 SEC Imaging Last Impressions Chest X-Ray 04/26/17 0000 Signed Impressions: Service Date/Time: Wednesday, April 26, 2017 11:12 - CONCLUSION: No acute cardiopulmonary disease. Lio Kern Jr., MD Assessment and Plan Problem List: (1) Elevated troponin ICD Codes: R74.8 - Abnormal levels of other serum enzymes Status: Acute Plan: Likely mild chf, currently no sx. Await echo and nuc stress.; continue medical mgt. (2) Shortness of breath ICD Codes: R06.02 - Shortness of breath Status: Acute Plan: Improved, on oral lasix. (3) CAD (coronary artery disease) ICD Codes: I25.10 - Atherosclerotic heart disease of [place] coronary artery without angina pectoris Plan: s/p recent stent, on plavix, asa, bb, statin Assessment and Plan If no major findings on his stress test/echo, would be ok to d/c home from cardiac standpoint. Khris Blancas MD Apr 28, 2017 08:25
--- NOTE | 2017-04-28 08:40 | HHI.DCPOC ---
Discharge Care Plan Diagnosis: (1) CAD (coronary artery disease) (2) Elevated troponin (3) Shortness of breath Your Health Problems Are: Difficulty with ADL Exercise Tolerance Goals to Promote Your Health * To prevent worsening of your condition and complications * To maintain your health at the optimal level Directions to Meet Your Goals Take your medications as prescribed Follow your dietary instruction Follow activity as directed Keep your appointments as scheduled Take your immunizations and boosters as scheduled If your symptoms worsen call your PCP, if no PCP go to Urgent Care Center or Emergency Room Smoking is Dangerous to Your Health. Avoid second hand smoke Call the 24-hour hour crisis hotline for domestic abuse at Ciro Baltazar MD Apr 28, 2017 08:40
[2017-04-28] MEDS: SODIUM CHLORIDE 0.9% FLUSH 10 ML FLUSH IV FLUSH SCH (09:58)
[2017-04-28] MEDS: ASPIRIN 81 MG CHEW TAB CHEW SCH (09:58)
[2017-04-28] MEDS: FUROSEMIDE 20 MG TAB PO SCH (09:58)
[2017-04-28] MEDS: GABAPENTIN 400 MG CAP PO SCH ×2 (09:58→14:30)
[2017-04-28] MEDS: CETIRIZINE HCL 10 MG TAB PO SCH (09:59)
[2017-04-28] MEDS: BACLOFEN 10 MG TAB PO SCH ×2 (09:59→14:30)
[2017-04-28] MEDS: CLOPIDOGREL 75 MG TAB PO SCH (09:59)
[2017-04-28] MEDS: CARVEDILOL 6.25 MG TAB PO SCH (09:59)
[2017-04-28] MEDS ORDERED: REGADENOSON INJ 0.4 MG/5 ML SYR ONE (10:59)
--- NOTE | 2017-04-28 13:25 | HHI.PR ---
Subjective Remarks Follow-up heart failure. He is doing okay denies shortness of breath or chest pain. Awaiting echocardiogram and stress test discussed with RN Objective Vitals Vital Signs Date Time Temp Pulse Resp B/P (MAP) Pulse Ox O2 Delivery O2 Flow Rate FiO2 04/28/17 08:00 Room Air 04/28/17 04:00 97.5 62 20 106/55 (72) 92 04/28/17 03:48 54 04/28/17 00:23 97.7 63 18 121/69 (86) 95 127/61 (83) 132/70 (90) 04/27/17 23:48 57 04/27/17 21:00 Room Air 04/27/17 20:00 98.2 63 20 130/63 (85) 95 134/66 (88) 136/69 (91) 04/27/17 19:49 61 04/27/17 16:04 72 04/27/17 16:00 97.6 62 20 130/71 (90) 95 I/O 04/27/17 04/27/17 04/27/17 04/28/17 04/28/17 04/28/17 07:00 15:00 23:00 07:00 15:00 23:00 Intake Total 480 ml 850 ml 240 ml Balance 480 ml 850 ml 240 ml Intake Oral 480 ml 600 ml 240 ml IV Total 250 ml # Voids 2 3 3 # Bowel Movements 1 1 0 Result Diagram: 04/27/17 0559 04/27/17 0559 Imaging Last Impressions Chest X-Ray 04/26/17 0000 Signed Impressions: Service Date/Time: Wednesday, April 26, 2017 11:12 - CONCLUSION: No acute cardiopulmonary disease. Lio Kern Jr., MD Objective Remarks GENERAL: This is a well-nourished, well-developed patient, in no apparent distress. SKIN: No rashes, ecchymoses or lesions. Cool and dry. CARDIOVASCULAR: Regular rate and rhythm without murmurs, gallops, or rubs. RESPIRATORY: Clear to auscultation. Breath sounds equal bilaterally. No wheezes , rales, or rhonchi. GASTROINTESTINAL: Abdomen soft, non-tender, nondistended. No guarding. MUSCULOSKELETAL: Extremities without clubbing, cyanosis, or edema. No joint tenderness, effusion, or edema noted. No calf tenderness. Negative Homans sign bilaterally. NEUROLOGICAL: Awake and alert. Cranial nerves II through XII intact. Motor and sensory grossly within normal limits. Five out of 5 muscle strength in all muscle groups. Normal speech. Procedures None A/P Problem List: (1) Elevated troponin ICD Code: R74.8 - Abnormal levels of other serum enzymes Status: Acute Assessment and Plan NSTEMI with history of coronary artery disease status post stent and angioplasty recently. Currently without chest pain. Continue aspirin, Plavix, Coreg and Lipitor. Obtain cardiac catheter results from his cardiologis. Risk factor modifications. A1c 5.7 LDL 48. Consulted cardiology and ordered stress tests orthostatic hypotension meds induced from lasix . Improved chf exacerbation - systolic. Improved CHF education, I/O and monitor weight. Continue Lasix. Fluid restriction and follow-up echocardiogram results DVT prophylaxis with heparin Discharge Planning Discharge patient to home Condition on discharge: Improved Regular Diet as tolerated Ad Lara activity Rx written: None Follow-up with primary care physician and cardiology Ciro Baltazar MD Apr 28, 2017 13:25
--- NOTE | 2017-04-28 14:46 | RADRPT ---
EXAM DATE/TIME: 04/28/2017 11:06 [facility] COMPARISON: No previous studies available for comparison. INDICATIONS : Coronary artery disease. Myocardial infarction. DOSE: 25.8 mCi Tc99m Myoview at stress. 8.6 mCi Tc99m Myoview at rest. 0.4 mg Lexiscan STRESS SYMPTOMS: Shortness of breath. EJECTION FRACTION: 52% MEDICAL HISTORY : Hypertension. Congestive heart failure. SURGICAL HISTORY : Inguinal hernia repair. Coronary artery stent. ENCOUNTER: Initial ACUITY: 1 day PAIN SCALE: 3/10 LOCATION: Bilateral chest TECHNIQUE: The patient underwent pharmacologic stress with infusion of prescribed dose. Continuous ECG tracing was monitored during stress. Gated SPECT imaging was performed after stress and conventional SPECT i maging was performed at rest. The examination was performed on a SPECT/CT scanner, both attenuation and non-corrected datasets were reviewed. FINDINGS: DISTRIBUTION: The maximum perfused segment at stress is in the lateral wall. PERFUSION STUDY: There is a large fixed defect involving the inferoseptal wall. No area of significant redistribution appreciated to suggest acute ischemia. GATED STUDY: There is a area of hypokinesia involving the inferoseptal wall correlating to the area of fixed defec t on the perfusion study. No dyskinesia appreciated. CONCLUSION: Large fixed defect involving the inferoseptal wall. No significant reversible defect observed to sugg est acute ischemia. RISK CATEGORY: Low Lio Kern Jr., MD on April 28, 2017 at 14:40 Board Certified Radiologist. This report was verified electronically.
--- NOTE | 2017-04-28 15:45 | ECHRPT ---
Indication: Heart failure, unspecified CONCLUSIONS The left ventricular systolic function is mildly to moderately reduced with an estimated ejection fr action in the range of 40-45%. Mild concentric left ventricular hypertrophy. Normal left ventricular size. Trace aortic valve regurgitation. Mild mitral valve regurgitation. There is mild tricuspid regurgitation. The estimated pulmonary arterial pressure is 44 mmHg. BP: 133 / 62 HR: 67 Rhythm: Sinus MEASUREMENTS (Male / Female) Normal Values Technical Quality:Good 2D ECHO LV Diastolic Diameter PLAX 5.4 cm 4.2 - 5.9 / 3.9 - 5.3 cm LV Systolic Diameter PLAX 4.5 cm IVS Diastolic Thickness 1.1 cm 0.6 - 1.0 / 0.6 - 0.9 cm LVPW Diastolic Thickness 1.1 cm 0.6 - 1.0 / 0.6 - 0.9 cm LV Relative Wall Thickness 0.4 LVOT Diameter 2.0 cm M-MODE Aortic Root Diameter MM 2.6 cm LA Systolic Diameter MM 4.3 cm LA Ao Ratio MM 1.7 AV Cusp Separation MM 2.0 cm DOPPLER AV Peak Velocity 124.0 cm/s AV Peak Gradient 6.2 mmHg AI Peak Velocity 255.5 cm/s AI Peak Gradient 26.1 mmHg AI Pressure Half Time 878.0 ms LVOT Peak Velocity 66.6 cm/s LVOT Peak Gradient 1.8 mmHg AV Area Cont Eq pk 1.7 cm MR Peak Velocity 395.0 cm/s MR Peak Gradient 62.4 mmHg Mitral E Point Velocity 111.0 cm/s Mitral A Point Velocity 48.9 cm/s Mitral E to A Ratio 2.3 LV E' Lateral Velocity 7.0 cm/s Mitral E to LV E' Lateral Ratio 15.8 LV E' Septal Velocity 5.5 cm/s Mitral E to LV E' Septal Ratio 20.3 TR Peak Velocity 293.0 cm/s TR Peak Gradient 34.3 mmHg Right Atrial Pressure 10.0 mmHg Pulmonary Artery Systolic Pressu 44.3 mmHg Right Ventricular Systolic Press 44.3 mmHg PV Peak Velocity 82.8 cm/s PV Peak Gradient 2.7 mmHg FINDINGS LEFT VENTRICLE The left ventricular systolic function is mildly to moderately reduced with an estimated ejection fr action in the range of 40-45%. Mild concentric left ventricular hypertrophy. Normal left ventricular size. RIGHT VENTRICLE Normal right ventricular size and systolic function. LEFT ATRIUM The left atrial size is normal. RIGHT ATRIUM The right atrial size is normal. ATRIAL SEPTUM Normal atrial septal thickness without atrial level shunting by limited color doppler interrogation. AORTA The aortic root and proximal ascending aorta are normal in size on limited imaging. MITRAL VALVE Mild mitral valve regurgitation. AORTIC VALVE Trace aortic valve regurgitation. TRICUSPID VALVE There is mild tricuspid regurgitation. The estimated pulmonary arterial pressure is 44.3 mmHg. PULMONARY VALVE No pulmonary valve regurgitation or stenosis. VESSELS The inferior vena cava is normal in size. PERICARDIUM No pericardial effusion. Troy Vanessa MD, FACC (Electronically Signed) Final Date:28 April 2017 15:44
--- NOTE | 2017-04-28 15:50 | HHI.DS ---
Discharge Summary Admission Date Apr 26, 2017 at 14:47 Discharge Date: Apr 28, 2017 Admitting Diagnosis shortness of breath, elevated troponin (1) Elevated troponin ICD Code: R74.8 - Abnormal levels of other serum enzymes Diagnosis: Principal Status: Acute Procedures None Brief History - [facility] but was not feelign good so told nurse who took him to pcp there and checked him immediately BP was found to be low and pcp told him to come to ER but they let him drive here to come to ER have been sob for past 6 months but worsening since monday and Monday worse with lying down pt increased his lasix dose twice - because he gained water weight 10lbs over 2 weeks- lasix was thus increased 2 weeks ago did not measure BP at home because did not have machine - lost it in [place] have light headedness have some chest pains on and off- but did not think it was from his heart- stated NTG did not help pain is across chest did not radiate thought it was indegestion no other symptoms CBC/BMP: 04/27/17 0559 04/27/17 0559 Significant Findings Laboratory Tests Test 04/26/17 11:05 04/26/17 14:30 04/26/17 18:27 04/26/17 21:44 Monocytes (%) (Auto) 15.7 % (0.0-8.0) Eosinophils (%) (Auto) 7.8 % (0.0-4.0) Monocytes # (Auto) 1.4 TH/MM3 (0-0.9) Eosinophils # (Auto) 0.7 TH/MM3 (0-0.4) Blood Urea Nitrogen 27 MG/DL (7-18) Creatinine 1.40 MG/DL (0.60-1.30) Calcium Level 8.0 MG/DL (8.5-10.1) Anion Gap 4 MEQ/L (5-15) Estimat Glomerular Filtration Rate 49 ML/MIN (>89) Troponin I 0.22 NG/ML (0.02-0.05) 0.20 NG/ML (0.02-0.05) B-Type Natriuretic Peptide 178 PG/ML (0-100) Activated Partial Thromboplast Time 57.9 SEC (24.3-30.1) Test 04/26/17 22:56 04/27/17 05:59 04/27/17 09:18 04/27/17 15:14 Troponin I 0.15 NG/ML (0.02-0.05) Monocytes (%) (Auto) 13.6 % (0.0-8.0) Eosinophils (%) (Auto) 7.7 % (0.0-4.0) Monocytes # (Auto) 1.1 TH/MM3 (0-0.9) Eosinophils # (Auto) 0.6 TH/MM3 (0-0.4) Activated Partial Thromboplast Time GREATER THAN 277.5 SEC Blood Urea Nitrogen 21 MG/DL (7-18) Random Glucose 137 MG/DL (74-106) Calcium Level 8.2 MG/DL (8.5-10.1) Estimat Glomerular Filtration Rate 72 ML/MIN (>89) Cholesterol Level 107 MG/DL (120-200) Test 04/27/17 21:06 04/28/17 04:48 Activated Partial Thromboplast Time 31.7 SEC (24.3-30.1) 46.2 SEC (24.3-30.1) Imaging Last Impressions Myocardial Perfusion Scan Nuc Med 04/28/17 0000 Signed Impressions: Service Date/Time: Friday, April 28, 2017 11:06 - CONCLUSION: Large fixed defect involving the inferoseptal wall. No significant reversible defect observed to suggest acute ischemia. RISK CATEGORY: Low Lio Kern Jr., MD Chest X-Ray 04/26/17 0000 Signed Impressions: Service Date/Time: Wednesday, April 26, 2017 11:12 - CONCLUSION: No acute cardiopulmonary disease. Lio Kern Jr., MD PE at Discharge GENERAL: This is a well-nourished, well-developed patient, in no apparent distress. SKIN: No rashes, ecchymoses or lesions. Cool and dry. CARDIOVASCULAR: Regular rate and rhythm without murmurs, gallops, or rubs. RESPIRATORY: Clear to auscultation. Breath sounds equal bilaterally. No wheezes , rales, or rhonchi. GASTROINTESTINAL: Abdomen soft, non-tender, nondistended. No guarding. MUSCULOSKELETAL: Extremities without clubbing, cyanosis, or edema. No joint tenderness, effusion, or edema noted. No calf tenderness. Negative Homans sign bilaterally. NEUROLOGICAL: Awake and alert. Cranial nerves II through XII intact. Motor and sensory grossly within normal limits. Five out of 5 muscle strength in all muscle groups. Normal speech. Hospital Course NSTEMI with history of coronary artery disease status post stent and angioplasty recently. Currently without chest pain. Continue aspirin, Plavix, Coreg and Lipitor. Obtain cardiac catheter results from his animal sticker. Risk factor modifications. A1c 5.7 LDL 48. Consulted cardiology and ordered Lexiscan which was negative for ischemia orthostatic hypotension meds induced from lasix . Improved chf exacerbation - systolic. Improved CHF education, I/O and monitor weight. Continue Lasix and Coreg. Fluid restriction and follow-up echocardiogram results consider MARY JO inhibitor if his ejection fraction less than 40% if BP tolerates DVT prophylaxis with heparin Pt Condition on Discharge: Stable Discharge Disposition: Discharge Home Discharge Time: > 30 minutes Discharge Instructions DIET: Follow Instructions for: Heart Healthy Diet Activities you can perform: Regular-No Restrictions Activities to Avoid: Driving Follow up Referrals: Cardiology - 1 Week PCP Follow-up - 1 Week Continued Medications: Aspirin (Aspirin) 81 Mg Chew 81 MG CHEW DAILY, TAB 0 Refills Atorvastatin (Atorvastatin) 80 Mg Tab 80 MG PO HS for Cholesterol Management, #30 TAB 0 Refills Baclofen (Baclofen) 10 Mg Tab 10 MG PO TID for Muscle Spasm, TAB 0 Refills Carvedilol (Carvedilol) 6.25 Mg Tab 6.25 MG PO BID, #60 TAB 0 Refills Cetirizine (Cetirizine) 10 Mg Tab 10 MG PO DAILY for Allergies, TAB 0 Refills Clopidogrel (Clopidogrel) 75 Mg Tab 75 MG PO DAILY for Blood Clot Prevention, #30 TAB 0 Refills Furosemide (Furosemide) 40 Mg Tab 20 MG PO DAILY, #30 TAB 0 Refills Gabapentin (Gabapentin) 600 Mg Tab 400 MG PO QID, #90 TAB 0 Refills Isosorbide Mononitrate ER (Isosorbide Mononitrate ER) 30 Mg Tony 30 MG PO DAILY for Prevent Chest Pain, #30 TAB 0 Refills Nitroglycerin SL (Nitrostat SL) 0.4 Mg Subl 0.4 MG SL DIRECTED PRN for CHEST PAIN, #100 TAB.SL 0 Refills 1 tablet under the tongue as needed for chest pain. Repeat every 5 minutes for a total of 3 DOSES or call 911 if NO relief. Discontinued Medications: Meloxicam (Meloxicam) 7.5 Mg Tab 7.5 MG PO DAILY for Arthritis Pain, TAB 0 Refills Ciro Baltazar MD Apr 28, 2017 15:50
--- NOTE | 2017-04-28 23:54 | EKG ---
Date Performed: 04/26/2017 Time Performed: 18:59:56 PTAGE: 81 years EKG: Sinus rhythm with borderline 1st degree A-V block Inferior infarct - age undetermined QRS changes V3/V4 may be du e to LVH but cannot rule out anterior infarct Lateral ST-T changes may be due to myocardial ischemia Abnormal ECG Compared to the PREVIOUS TRACING from 04/26/17, no significant change DOCTOR: César Méndez Interpretating Date/Time 04/28/2017 23:54:09
--- NOTE | 2017-04-28 23:54 | EKG ---
Date Performed: 04/27/2017 Time Performed: 00:10:06 PTAGE: 81 years EKG: Sinus bradycardia with borderline 1st degree A-V block Possible inferior infarct - age unde termined Lateral ST-T changes are nonspecific Abnormal ECG PREVIOUS TRACING : 04/26/2017 22.33 Compared to prior tracing no significant change DOCTOR: César Méndez Interpretating Date/Time 04/28/2017 23:52:18
== END 2017-04-28 17:12 | disposition home or self-care (01) | DRG 280 ==
LOC: NEPE 10:18 → NEDA 14:47 → N04A 18:23
PROVIDERS: ADMIT Internal Medicine; ATTEND Internal Medicine
DX: I21.4 Non-ST elevation (NSTEMI) myocardial infarction (principal); I50.23 Acute on chronic systolic (congestive) heart failure; I11.0 Hypertensive heart disease with heart failure; I95.1 Orthostatic hypotension; I25.2 Old myocardial infarction; I25.10 Atherosclerotic heart disease of native coronary artery without angina pectoris; Z95.5 Presence of coronary angioplasty implant and graft; Z86.711 Personal history of pulmonary embolism; E03.9 Hypothyroidism, unspecified; E78.5 Hyperlipidemia, unspecified; K21.9 Gastro-esophageal reflux disease without esophagitis; G89.29 Other chronic pain; Z79.82 Long term (current) use of aspirin; Z87.891 Personal history of nicotine dependence; Z23 Encounter for immunization
CPT/HCPCS: 71010; 78452; 80048; 80053; 80061; 82550; 83036; 83880; 84484; 85025; 85379; 85610; 85730; 90686; 90732; 93005; 93017; 93306; 96360; A9502; J1644; J2785; J7040; Q2038

== ENCOUNTER 2017-10-17 14:19 | Emergency (ER) | payer OTHER ==
[~2017-10-17] VITALS: Ht 167.6 cm; Wt 90.0 kg
[2017-10-17 14:30] VITALS: BP 127/65; PULSE 100; RESP 15; TEMP 97.4; O2SAT 98
[2017-10-17 14:56] VITALS: BP 121/63; PULSE 103; RESP 17; O2SAT 96
[2017-10-17 15:00] VITALS: O2SAT 96
[2017-10-17] MEDS ORDERED: RESP: ALBUTEROL 2.5 MG/IPRATROPIUM 0.5 MG NEB (SCH) INH ONE (15:00)
[2017-10-17 15:25] LABS: AUTOMATED NEUTROPHIL # 4.3 TH/MM3 (1.8-7.7); BASOPHIL % 0.6 % (0.0-2.0); EOSINOPHIL # 0.5 TH/MM3 (0-0.4); EOSINOPHIL % 7.4 % (0.0-4.0); HEMATOCRIT 43.7 % (39.0-51.0); HEMOGLOBIN 14.8 GM/DL (13.0-17.0); LYMPH % 20.6 % (9.0-44.0); LYMPHOCYTE # 1.5 TH/MM3 (1.0-4.8); MEAN CELL VOLUME 94.5 FL (80.0-100.0); MEAN CORPUSCULAR HEMOGLOBIN 31.9 PG (27.0-34.0); MEAN CORPUSCULAR HGB CONC 33.8 % (32.0-36.0); MEAN PLATELET VOLUME 8.3 FL (7.0-11.0); MONO % 12.8 % (0.0-8.0); MONOCYTE # 0.9 TH/MM3 (0-0.9); NEUT % 58.6 % (16.0-70.0); PLATELET COUNT 248 TH/MM3 (150-450); RED BLOOD COUNT 4.63 MIL/MM3 (4.50-5.90); RED CELL DISTRIBUTION WIDTH 14.1 % (11.6-17.2); WHITE BLOOD COUNT 7.3 TH/MM3 (4.0-11.0)
[2017-10-17] MEDS ORDERED: OMEP40CA2 PO (15:29)
[2017-10-17] MEDS ORDERED: METO10TA PO (15:29)
[2017-10-17] MEDS ORDERED: DIPH25CA PO (15:29)
[2017-10-17] MEDS ORDERED: SACU1TAB7 PO (15:29)
[2017-10-17] MEDS ORDERED: CELE1CAP8 PO (15:29)
--- NOTE | 2017-10-17 15:37 | RADRPT ---
EXAM DATE: 10/17/2017 3:25 PM EDT AGE/SEX: 81 years / Male INDICATIONS: Short of breath and weakness for several weeks. CLINICAL DATA: This is the patient's initial encounter. Patient reports that signs and symptoms have been present for 2 weeks and indicates a pain score of 3/10. MEDICAL/SURGICAL HISTORY: Hypertension. Congestive heart failure. Myocardial infarction. Coron nellie artery disease. . Hernia repair. Bilateral shoulders. Cervical spacers. [place] [facility] [place]. . FINDINGS: Scattered bilateral calcifications are again noted consistent with the patient's known partially calc ified nodular pleural plaques. No acute focal infiltrate is noted. No pulmonary edema is noted. The h eart is stable. Degenerative changes and scoliosis of the thoracolumbar spine are noted. CONCLUSION: 1. Scattered bilateral calcifications consistent with the patient's known partially calcified nodula r pleural plaques. 2. No acute focal infiltrate or pulmonary vascular congestion. 3. Degenerative changes and scoliosis of the thoracolumbar spine. Electronically signed by: Nelson Terry MD 10/17/2017 3:36 PM EDT
[2017-10-17 16:10] LABS: ALKALINE PHOSPHATASE 107 U/L (45-117); TOTAL BILIRUBIN ADULT 0.5 MG/DL (0.2-1.0); TOTAL PROTEIN 7.3 GM/DL (6.4-8.2); TROPONIN I LESS THAN 0.02 NG/ML (0.02-0.05)
--- NOTE | 2017-10-17 16:10 | PD ---
HPI Chief Complaint: General Weakness Time Seen by Provider: 14:41 Travel History International Travel<30 days: No Contact w/Intl Traveler<30days: No Traveled to known affect area: No History of Present Illness HPI 81-year-old male who presents to the ED for evaluation of generalized weakness and shortness of breath. Per patient he has had weakness and shortness of breath for the past couple of months worsening for the past couple days. Per patient he went today to see his doctor he recommended that he comes here to get evaluated. He does have a history of CHF and has no history of smoking. Per patient he takes Lasix 40 mg every day will take some potassium today concerned that the potassium might be of. Per family he is also been gaining weight for the past couple of months without trying but the patient is also not capable of exercising secondary to the weakness in the shortness of breath. No numbness, tingling, weakness. Denies any chest pain. Per patient shortness of breath gets worse with any movement. Per patient he feels out of breath with just walking from his bed to the bathroom. This has progressively gotten worse to the point where it is affecting his daily living. He denies ever been diagnosed with COPD. Per patient he does not use oxygen at home. He does not use any inhalers. He does take blood thinners. He has a history of high cholesterol, diabetes and hypertension. He follows with Dr. Kwon for cardiology who wanted him to have some blood work done including BNP and BMP. Has no allergies to medication. Denies any medical issues. He does state feeling some weakness to his legs and attributes some pain to his legs to arthritis. PFSH Past Medical History Hx Anticoagulant Therapy: Yes Cancer: No Cardiovascular Problems: Yes High Cholesterol: No Chest Pain: Yes Congestive Heart Failure: Yes Coronary Artery Disease: Yes Diabetes: No Diminished Hearing: No Endocrine: No Genitourinary: No Hypertension: Yes Musculoskeletal: Yes Neurologic: No Psychiatric: No Reproductive: No Respiratory: No Myocardial Infarction: Yes (02/21) ?: Not Past Surgical History Abdominal Surgery: Yes (HERNIA REPAIR) Cardiac Surgery: Yes (STENT 02/21) Eye Surgery: Yes Other Surgery: Yes (carpal tunnel sx) Social History Alcohol Use: Yes (Occasionally) Tobacco Use: No Substance Use: No Allergies-Medications (Allergen,Severity, Reaction): Coded Allergies: No Known Allergies (Unverified Allergy, Unknown, 10/17/17) Reported Meds & Prescriptions Reported Meds & Active Scripts Active Proair Hfa 8.5 GM Inh (Albuterol Sulfate) 90 Mcg/Act Aer 2 Puff INH Q6H PRN 108 mcg/actuation Prednisone 20 Mg Tab 20 Mg PO BID 5 Days Reported Diphenhydramine (Diphenhydramine HCl) 25 Mg Cap 25 Mg PO ONCE Entresto (Sacubitril-Valsartan) 49-51 Mg Tab 1 Tab PO DAILY Celecoxib 200 Mg Cap 200 Mg PO DAILY Omeprazole 40 Mg Cap 40 Mg PO DAILY Metoclopramide (Metoclopramide HCl) 10 Mg Tab 10 Mg PO DAILY Nitrostat SL (Nitroglycerin) 0.4 Mg Subl 0.4 Mg SL DIRECTED PRN 1 tablet under the tongue as needed for chest pain. Repeat every 5 minutes for a total of 3 DOSES or call 911 if NO relief. Gabapentin 600 Mg Tab 600 Mg PO QID Furosemide 40 Mg Tab 40 Mg PO DAILY Clopidogrel (Clopidogrel Bisulfate) 75 Mg Tab 75 Mg PO DAILY Carvedilol 6.25 Mg Tab 12.5 Mg PO BID Atorvastatin (Atorvastatin Calcium) 80 Mg Tab 80 Mg PO HS Aspirin 81 Mg Chew 81 Mg CHEW DAILY Review of Systems Except as stated in HPI: all other systems reviewed are Neg Physical Exam Narrative GENERAL: SKIN: Warm and dry. HEAD: Atraumatic. Normocephalic. EYES: Pupils equal and round. No scleral icterus. No injection or drainage. ENT: No nasal bleeding or discharge. Mucous membranes pink and moist. Tongue is midline. No uvula deviation. NECK: Trachea midline. No JVD. CARDIOVASCULAR: Regular rate and rhythm. No murmurs, S3, S4. RESPIRATORY: No accessory muscle use. Minimal wheezing heard in exam. Breath sounds equal bilaterally. GASTROINTESTINAL: Abdomen soft, non-tender, nondistended. Hepatic and splenic margins not palpable. MUSCULOSKELETAL: Extremities without clubbing, cyanosis, or edema. No obvious deformities. Full range of motion of the upper and lower extremities bilaterally. 2+ pulses bilaterally. NEUROLOGICAL: Awake and alert. No obvious cranial nerve deficits. Motor grossly within normal limits. Five out of 5 muscle strength in the arms and legs. Normal speech. PSYCHIATRIC: Appropriate mood and affect; insight and judgment normal. Data Data Last Documented VS Vital Signs Date Time Temp Pulse Resp B/P (MAP) Pulse Ox O2 Delivery O2 Flow Rate FiO2 10/17/17 20:27 54 18 132/67 (88) 98 Room Air 10/17/17 15:00 21 10/17/17 14:30 97.4 Orders Orders Electrocardiogram (10/17/17 14:53) Complete Blood Count With Diff (10/17/17 14:53) Comprehensive Metabolic Panel (10/17/17 14:53) Ckmb (Isoenzyme) Profile (10/17/17 14:53) Troponin I (10/17/17 14:53) B-Type Natriuretic Peptide (10/17/17 14:53) Prothrombin Time / Inr (Pt) (10/17/17 14:53) Act Partial Throm Time (Ptt) (10/17/17 14:53) Urinalysis - C+S If Indicated (10/17/17 14:53) Magnesium (Mg) (10/17/17 14:53) Thyroid Stimulating Hormone (10/17/17 14:53) Chest, Single Ap (10/17/17 14:53) Iv Access Insert/Monitor (10/17/17 14:53) Ecg Monitoring (10/17/17 14:53) Oximetry (10/17/17 14:53) Albuterol-Ipratropium Neb (Duoneb Neb) (10/17/17 15:00) D-Dimer (10/17/17 14:55) CKMB (10/17/17 14:55) CKMB% (10/17/17 14:55) Ct Pulmonary Angiogram (10/17/17 ) Iohexol 350 Inj (Omnipaque 350 Inj) (10/17/17 18:37) Ed Discharge Order (10/17/17 20:41) Labs Laboratory Tests Test 10/17/17 14:55 10/17/17 16:16 White Blood Count 7.3 TH/MM3 Red Blood Count 4.63 MIL/MM3 Hemoglobin 14.8 GM/DL Hematocrit 43.7 % Mean Corpuscular Volume 94.5 FL Mean Corpuscular Hemoglobin 31.9 PG Mean Corpuscular Hemoglobin Concent 33.8 % Red Cell Distribution Width 14.1 % Platelet Count 248 TH/MM3 Mean Platelet Volume 8.3 FL Neutrophils (%) (Auto) 58.6 % Lymphocytes (%) (Auto) 20.6 % Monocytes (%) (Auto) 12.8 % Eosinophils (%) (Auto) 7.4 % Basophils (%) (Auto) 0.6 % Neutrophils # (Auto) 4.3 TH/MM3 Lymphocytes # (Auto) 1.5 TH/MM3 Monocytes # (Auto) 0.9 TH/MM3 Eosinophils # (Auto) 0.5 TH/MM3 Basophils # (Auto) 0.0 TH/MM3 CBC Comment DIFF FINAL Differential Comment Prothrombin Time 11.1 SEC Prothromb Time International Ratio 1.1 RATIO Activated Partial Thromboplast Time 26.3 SEC D-Dimer Quantitative (PE/DVT) 0.53 MG/L FEU Blood Urea Nitrogen 22 MG/DL Creatinine 1.04 MG/DL Random Glucose 132 MG/DL Total Protein 7.3 GM/DL Albumin 3.7 GM/DL Calcium Level 8.5 MG/DL Magnesium Level 2.2 MG/DL Alkaline Phosphatase 107 U/L Aspartate Amino Transf (AST/SGOT) 21 U/L Alanine Aminotransferase (ALT/SGPT) 29 U/L Total Bilirubin 0.5 MG/DL Sodium Level 142 MEQ/L Potassium Level 4.3 MEQ/L Chloride Level 108 MEQ/L Carbon Dioxide Level 26.5 MEQ/L Anion Gap 8 MEQ/L Estimat Glomerular Filtration Rate 69 ML/MIN Total Creatine Kinase 148 U/L Creatine Kinase MB 1.6 NG/ML Troponin I LESS THAN 0.02 NG/ML B-Type Natriuretic Peptide 143 PG/ML Thyroid Stimulating Hormone 3rd Gen 2.910 uIU/ML Urine Color YELLOW Urine Turbidity CLEAR Urine pH 7.0 Urine Specific [place] 1.018 Urine Protein NEG mg/dL Urine Glucose (UA) NEG mg/dL Urine Ketones NEG mg/dL Urine Occult Blood NEG Urine Nitrite NEG Urine Bilirubin NEG Urine Urobilinogen LESS THAN 2.0 MG/DL Urine Leukocyte Esterase NEG Urine RBC LESS THAN 1 /hpf Urine WBC LESS THAN 1 /hpf Urine Mucus FEW /lpf Microscopic Urinalysis Comment CULT NOT INDICATED MDM Medical Decision Making Medical Screen Exam Complete: Yes Emergency Medical Condition: Yes Medical Record Reviewed: Yes Interpretation(s) Last Impressions Chest X-Ray 10/17/17 0744 Signed Impressions: CONCLUSION: 1. Scattered bilateral calcifications consistent with the patient's known part ially calcified nodular pleural plaques. 2. No acute focal infiltrate or pulmonary vascular congestion. 3. Degenerative changes and scoliosis of the thoracolumbar spine. CT Angiography 10/17/17 0000 Signed Impressions: CONCLUSION: 1. Widespread pleural plaques as described above stable from 2017. If there is clinical concern of malignancy PET scan could help direct biopsy. CBC & BMP Diagram 10/17/17 14:55 Total Protein 7.3, Albumin 3.7, Calcium Level 8.5, Magnesium Level 2.2, Alkaline Phosphatase 107, Aspartate Amino Transf (AST/SGOT) 21, Alanine Aminotransferase (ALT/SGPT) 29, Total Bilirubin 0.5 troponin and CKMB negative BNP in the 100s coags with elevated d-dimmer Differential Diagnosis CAD versus ACS versus COPD exacerbation versus CHF exacerbation versus CHF versus shortness of breath with exertion versus PE Narrative Course 81-year-old male that presents to the ED for evaluation of shortness of breath with exertion. Patient was properly examined and was found to have signs and symptoms of unclear etiology. Labs and imaging order. Labs and imaging showed positive d-dimer. CTA was done. CT a did not show any sign of pulmonary embolism of that show what appears to be pleural plagues that apparently had been present before. That appear to be stable. With further discussion with the patient patient apparently is aware of this place. Per previous report there was concern for asbestos exposure. Patient does tell me that he works for the [employer]. Patient likely has damage from the asbestos from the physical exam and history and imaging report. Radiologist recommended PET scan or biopsy of the lung secondary to the patient's findings if indicated. Patient did got improvement of symptoms with the nebulizer given. I think at this time is reasonable to try albuterol and prednisone. Patient will be discharged with instructions to follow with linux network engineer. Patient was given names of multiple linux network engineer in the area to follow-up with. He will be given reports of the scans and labs done here. He was told to closely follow with linux network engineer for further evaluation of this. BNP and cardiac enzymes are essentially unremarkable here. He follows up closely with Dr. Kwon and there is no sign of fluid overload or CHF. Case discussed in lenght with my attending Dr Ernst who agrees with plan. See ED if worsening symptoms. Follow up with PCP. Diagnosis Primary Impression: Pleural plaque Additional Impression: SOB (shortness of breath) on exertion Referrals: Shun Sheridan MD, Wahba Wadie MD White, R. Steven MD Patient Instructions: General Instructions Additional Instructions: Follow-up with linux network engineer. See ED if worsening symptoms. Take medications as prescribed. Call your doctor tomorrow to see if he can send you a to a linux network engineer for further evaluation. Med/Other Pt SpecificInfo: Prescription(s) given Scripts Albuterol 8.5 GM Inh (Proair Hfa 8.5 GM Inh) 90 Mcg/Act Aer 2 PUFF INH Q6H Y for SHORTNESS OF BREATH, #1 INHALER 0 Refills 108 mcg/actuation Prov: Olinda Ernst MD 10/17/17 Prednisone (Prednisone) 20 Mg Tab 20 MG PO BID for 5 Days, #10 TAB 0 Refills Prov: Olinda Ernst MD 10/17/17 Disposition: 01 DISCHARGE HOME Condition: Stable Cornelio Panda Oct 17, 2017 16:10
[2017-10-17 16:22] LABS: ALBUMIN 3.7 GM/DL (3.4-5.0); ALT (GPT) 29 U/L (12-78); AST (GOT) 21 U/L (15-37); BICARBONATE 26.5 MEQ/L (21.0-32.0); BLOOD UREA NITROGEN 22 MG/DL (7-18); CALCIUM 8.5 MG/DL (8.5-10.1); CHLORIDE 108 MEQ/L (98-107); CREATININE 1.04 MG/DL (0.60-1.30); GLOMERULAR FILTRATION RATE 69 ML/MIN (>89); GLUCOSE,RANDOM 132 MG/DL (74-106); MAGNESIUM 2.2 MG/DL (1.5-2.5); SODIUM (NA) 142 MEQ/L (136-145)
[2017-10-17 16:31] LABS: INTERNATIONAL NORMALIZED RATIO 1.1 RATIO; PROTHROMBIN TIME - PATIENT 11.1 SEC (9.8-11.6)
[2017-10-17 16:34] LABS: D-DIMER 0.53 MG/L FEU (0.00-0.50)
[2017-10-17 16:39] LABS: BILIRUBIN, URINE NEG (NEG); BLOOD, URINE NEG (NEG); GLUCOSE,URINE NEG (NEG); KETONE, URINE NEG (NEG); MUCUS URINE FEW /lpf (OCC); NITRITE,URINE NEG (NEG); URINE COLOR YELLOW (YELLW/STRAW); URINE LEUKOCYTE ESTERASE NEG (NEG)
[2017-10-17] MEDS ORDERED: IOHEXOL 350 MG/ML 10 ML VIAL (for RAD DIAG) IVCONTRAST ONE (18:37)
--- NOTE | 2017-10-17 18:46 | RADRPT ---
EXAM DATE: 10/17/2017 6:42 PM EDT AGE/SEX: 81 years / Male INDICATIONS: Short of breath with exertion. CLINICAL DATA: This is the patient's initial encounter. Patient reports that signs and symptoms have been present for 2 days and indicates a pain score of 4/10. MEDICAL/SURGICAL HISTORY: Congestive heart failure. Hypertension. Myocardial infarction. . Neck s urgery. Hernia repair. RADIATION DOSE: 19.79 CTDI (mGy) COMPARISON: [facility] – [place], 02/16/2017. . TECHNIQUE: Volumetric scanning was performed using a multi-row detector CT scanner during bolus infu jocelyn of 74 ml Omnipaque 350 (iohexol) nonionic water-soluble contrast as a single exam dose. The pablo a was post processed with a variety of visualization algorithms including full volume maximum intensi ty projection and sliding thin slab reformation. Using automated exposure control and adjustment of the mA and/or kV according to patient size, radiation dose was kept as low as reasonably achievable t o obtain optimal diagnostic quality images. FINDINGS: Scattered partially calcified pleural plaques are evident. There is no evidence for central pulmonary emboli. There is mild compensated cardiomegaly with moderate coronary calcifications. There is no associated pleural fluid. Upper abdominal contents are grossly unremarkable. CONCLUSION: 1. Widespread pleural plaques as described above stable from 2017. If there is clinical concern of m alignancy PET scan could help direct biopsy. Electronically signed by: Marvin Gold MD 10/17/2017 6:45 PM EDT
[2017-10-17 20:27] VITALS: BP 132/67; PULSE 54; RESP 18; O2SAT 98
[2017-10-17] MEDS ORDERED: PRED20 PO (20:42)
[2017-10-17] MEDS ORDERED: ALBUAER3 INH (20:42)
--- NOTE | 2017-10-18 09:30 | EKG ---
Date Performed: 10/17/2017 Time Performed: 14:10:57 PTAGE: 81 years EKG: Sinus rhythm WITH FIRST DEGREE AV BLOCK MARKED LEFT AXIS DEVIATION LOW QRS VOLTAGE IN PRECORDIAL LEADS POSSIBLE A NTERIOR MYOCARDIAL INFARCTION MODERATE T-WAVE ABNORMALITY, CONSIDER LATERAL ISCHEMIA ABNORMAL ECG PREVIOUS TRACING : 04/27/2017 00.10 DOCTOR: Saleem Jaime Interpretating Date/Time 10/18/2017 09:28:27
== END 2017-10-17 21:14 | disposition home or self-care (01) ==
LOC: NEPE 14:19
DX: J92.9 Pleural plaque without asbestos (principal); R06.02 Shortness of breath; I44.0 Atrioventricular block, first degree; I11.0 Hypertensive heart disease with heart failure; I25.10 Atherosclerotic heart disease of native coronary artery without angina pectoris; I25.2 Old myocardial infarction; I50.9 Heart failure, unspecified; E11.9 Type 2 diabetes mellitus without complications; E78.00 Pure hypercholesterolemia, unspecified; Z79.899 Other long term (current) drug therapy
CPT/HCPCS: 71045; 71275; 80053; 81001; 82550; 82552; 83735; 83880; 84443; 84484; 85025; 85379; 85610; 85730; 93005; 94664; 99285; Q9967